=== PATIENT | female | born 1985 | race Caucasian/White ===

== ENCOUNTER → 2018-07-24 10:17 | Outpatient (CLI) | payer BC, SELFPAY ==
[2018-07-24 14:33] LABS: Hemoglobin A1c 5.9 % (4.2-6.3)
[2018-07-24 14:36] LABS: Vitamin D,25 Hydroxy 13.2 ng/mL (29.95-100.01)
== END ==
PROVIDERS: Visit Provider Obstetrics & Gynecology
DX: E55.9 Vitamin D deficiency, unspecified (principal); E66.9 Obesity, unspecified; Z68.34 Body mass index [BMI] 34.0-34.9, adult; Z83.3 Family history of diabetes mellitus
CPT/HCPCS: 36415; 82306; 83036

== ENCOUNTER → 2018-10-24 11:21 | Outpatient (CLI) | payer BC, SELFPAY ==
[2018-10-24 12:55] LABS: Vitamin D,25 Hydroxy 24.3 ng/mL (29.95-100.01)
== END ==
PROVIDERS: Visit Provider Obstetrics & Gynecology
DX: E55.9 Vitamin D deficiency, unspecified (principal)
CPT/HCPCS: 82306

== ENCOUNTER → 2019-07-24 10:49 | Outpatient (CLI) | payer BC, SELFPAY ==
[2019-07-24 17:53] LABS: Vitamin D,25 Hydroxy 30.9 ng/mL (29.95-100.01)
[2019-07-28 13:23] LABS: HPV APTIMA, High Risk Negative (Negative); HPV Reflexed? YES, CHARGE PATIENT
== END ==
PROVIDERS: Visit Provider Obstetrics & Gynecology
DX: Z12.4 Encounter for screening for malignant neoplasm of cervix (principal); E55.9 Vitamin D deficiency, unspecified
CPT/HCPCS: 36415; 82306; 87624; 88175; G0145

== ENCOUNTER 2021-08-25 11:32 | Outpatient (CLI) | payer BC, SELFPAY ==
[2021-08-28 22:22] LABS: HPV APTIMA, High Risk Negative (Negative)
== END 2021-08-25 23:59 | disposition short-term general hospital (02) ==
LOC: LABSPEC 11:33
PROVIDERS: Visit Provider Obstetrics & Gynecology
DX: Z12.4 Encounter for screening for malignant neoplasm of cervix (principal)
CPT/HCPCS: 87624; 88175; G0145

== ENCOUNTER → 2024-11-04 | Outpatient (CLI) | payer BC, SELFPAY | END | disposition home or self-care (01) | DX: R06.83 Snoring (principal) | CPT/HCPCS: 95811 ==

== ENCOUNTER → 2024-11-23 | Outpatient (CLI) | payer BC, SELFPAY | END | disposition home or self-care (01) | LOC: SL 13:43 | DX: Z46.89 Encounter for fitting and adjustment of other specified devices (principal) ==